=== PATIENT | male | born 1970 | race Caucasian/White ===

== ENCOUNTER → 2020-04-06 12:10 | Outpatient (CLI) | payer BC, SELFPAY ==
--- NOTE | ~2020-04-06 | XR_ITS ---
XR fl inj shoulder RT - MR/CT DATE: 04/06/2020 13:18 INDICATION: Right shoulder pain; fluoroscopically guided right glenohumeral joint contrast material i njection for MRI shoulder evaluation TECHNIQUE: The purpose of the procedure, technique and potential complications were discussed with th e patient. The patient verbalized understanding and gave consent. Timeout procedure confirmed proper patient, procedure and sidedness. The skin of the anterior aspect of the right shoulder was prepared with sterile Betadine solution. St erile drape was applied. 1% lidocaine local anesthetic was a metastatic to the skin and underlying so ft tissues at the anterior aspect of the right shoulder. A 20-gauge spinal needle was introduced unde r fluoroscopic guidance into the glenohumeral joint space from an anterior approach. Subsequently, 12 cc dilute Omnipaque radiopaque and multi-Con MR contrast material was injected und er fluoroscopic visualization, revealing the contrast material to be intra-articular. A single spot r adiograph exposure was obtained for documentation. The patient was very cooperative and tolerated the procedure without complaint. IMPRESSION: Successful fluoroscopically guided percutaneous injection of contrast material into the r ight glenohumeral joint space for right MR shoulder examination Reviewed, dictated and finalized at [facility]. Reviewed, dictated and finalized at [facility]. IMPRESSION: Successful fluoroscopically guided percutaneous injection of contra st material into the right glenohumeral joint space for right MR shoulder exami nation
--- NOTE | ~2020-04-06 | MR_ITS ---
EXAMINATION: MR shoulder RT w con DATE: 04/06/2020 14:23 INDICATION: Right shoulder pain TECHNIQUE: Magnetic resonance imaging (MRI) of the right shoulder was performed following intra-sukhjinder cular gadolinium contrast injection and without intravenous contrast. Details of the glenohumeral peter nt injection have been dictated separately. Sequences included axial T2-weighted FS FSE, axial T1-we ighted FS FSE, coronal oblique T1-weighted FS FSE, coronal oblique T2-weighted FSE, sagittal T2-weigh roberto FS FSE, sagittal T1-weighted FSE, and ABER (abduction external rotation) T1-weighted FS FSE. COMPARISON: 03/07/2019 FINDINGS: Coracoacromial arch: The acromion undersurface is flat in morphology (type I). The acromion appears thin anteriorly with f oci of susceptibility artifact along the expected course of the coracoacromial ligament consistent wi th prior acromioplasty and resection/debridement of the ligament. Mild acromioclavicular osteoarthrit is. Rotator cuff: Again seen are suture anchors along the greater tuberosity foot plate and lateral margin of the great er tuberosity likely related to prior rotator cuff repair. Moderate supraspinatus tendinopathy. There is an expected small amount of contrast imbibition within the distal supraspinatus tendon at the sit e of repair. No extra-articular contrast extravasation to suggest full-thickness rotator cuff tear. T here is also no discrete measurable contrast filled tear defect or torn and retracted tendon tear mar gin to suggest a significant residual/recurrent tear. Mild subscapularis tendinopathy without discret e tear. Normal rotator cuff muscle bulk and signal. Biceps tendon, glenoid labrum and glenohumeral cartilage: Interval progression of the prior SLAP tear at the superior glenoid labrum with new avulsion of the i ntra-articular long head biceps tendon from its glenolabral anchor. The proximally attenuated long he ad biceps tendon tear margin is retracted distally to the level of the intertubercular groove. There is residual irregular contour with mild increased signal along the anteroinferior glenoid which appea rs less prominent than on the prior study there was a more well-defined contrast-filled tear suggesti ng either interval debridement or progressive degeneration. Partial-thickness chondral ulceration wit hout degenerative subchondral changes anteriorly at the apex of the humeral head. Chondral surface ir regularity along the anteroinferior glenoid. Small marginal osteophytes along the inferior humeral he ad. Bones and other: Normal marrow signal with no edema, fracture or abnormal marrow replacing process. Mild cystic change at the greater tuberosity. Small amount of fluid in the subacromial/subdeltoid bursa consistent wit h minimal bursitis. IMPRESSION: 1. Postoperative change of prior acromioplasty and rotator cuff repair which appears to involve the s upraspinatus, infraspinatus and teres minor tendons. No significant residual/recurrent tear appreciat ed. 2. Interval progression of a SLAP tear at the superior glenoid labrum with new avulsion of the long h ead biceps tendon. 3. Progressive degeneration versus interval debridement of an additional labral tear at the anteroinf erior glenoid. 4. Mild glenohumeral and acromioclavicular osteoarthritis. 5. Minimal subacromial/subdeltoid bursitis. Reviewed, dictated and finalized at [facility]. IMPRESSION: 1. Postoperative change of prior acromioplasty and rotator cuff repair which ap pears to involve the supraspinatus, infraspinatus and teres minor tendons. No s ignificant residual/recurrent tear appreciated. 2. Interval progression of a SLAP tear at the superior glenoid labrum with new avulsion of the long head biceps tendon. 3. Progressive degenerati
== END ==
PROVIDERS: Visit Provider Specialist
DX: M19.011 Primary osteoarthritis, right shoulder (principal)
CPT/HCPCS: 23350; 73222; 77002; A9577; Q9966

== ENCOUNTER → 2020-04-08 12:11 | Outpatient (CLI) | payer BC, SELFPAY ==
--- NOTE | ~2020-04-08 | XR_ITS ---
EXAMINATION: XR fl inj knee RT for MR/CT DATE: 04/08/2020 13:12 INDICATION: Acute onset right knee pain. TECHNIQUE: A time-out was performed to verify the patient's name, date of , and procedure to b e performed. The procedure including the risks, benefits, and alternatives was discussed with the pat ient. Risks discussed included bleeding, infection and allergic reaction. The patient understood the risks and agreed to proceed. The skin overlying the lateral aspect of the right knee joint was prepp ed and draped in usual sterile fashion. Anesthetic was administered with 1% lidocaine subcutaneously . A 22 G needle was advanced under fluoroscopic guidance into the patellofemoral compartment of the right knee joint. Injection of 1 mL of Omnipaque 240 confirmed intra-articular position of the needl e. Subsequently, injectate consisting of 40 mL of 7:3:2 mixture of sterile saline:Omnipaque 240:1% l idocaine mixed 200:1 with 529 mg/mL Multihance gadolinium contrast was injected with intermittent flu oroscopy confirming intra-articular administration. The needle was removed and the entry site was ashia aned and dressed. There were no immediate complications. Fluoroscopy exposure time was 0.1 minutes. The total number of images was 9. FINDINGS: Real-time fluoroscopy demonstrates the needle in the right knee joint. IMPRESSION: 1. Right knee joint injection of a dilute gadolinium contrast mixture for subsequent MRI arthrogram w hich will be dictated separately. Reviewed, dictated and finalized at [facility]. IMPRESSION: 1. Right knee joint injection of a dilute gadolinium contrast mixture for subse quent MRI arthrogram which will be dictated separately.
--- NOTE | ~2020-04-08 | MR_ITS ---
EXAMINATION: MR knee RT w con DATE: 04/08/2020 13:48 INDICATION: Acute onset right knee pain with multiple prior surgeries TECHNIQUE: Magnetic resonance arthrogram of the right knee was performed without intravenous contrast but following intra-articular administration of a dilute gadolinium contrast mixture. Details of the joint injection have been dictated separately. Sequences included sagittal PD-weighted FSE, axial, s agittal and coronal PD-weighted FS FSE, sagittal and coronal T1-weighted FS FSE. COMPARISON: None. FINDINGS: Medial compartment: Minimal residual meniscal tissue at the medial meniscal body and posterior horn likely reflecting day nges of prior subtotal meniscectomy. Chondral ulceration along the medial margin of the medial tibial plateau. Extensive chondral ulceration along the weightbearing medial femoral condyle most prominent along the lateral aspect of the central weightbearing medial femoral condyle where a flat central candelario bchondral osteophyte has developed. Lateral compartment: There is lateral extrusion of the lateral meniscal body. There is mildly increased contrast signal ex tending along a longitudinal horizontal tear plane extending to the inferior articular surface of the body and posterior horn of the lateral meniscus. Deep chondral ulceration along the lateral and post erior margins of the medial tibial plateau. Underlying mild subarticular edema at the posterior aspec t of the lateral tibial plateau. Additional deep chondral ulceration with mild cortical irregularity at the central aspect of the weightbearing lateral femoral condyle. A severe partial thickness cartil age loss and chondral surface irregularity along portions of the remaining tibial plateau and lateral femoral condyle. Patellofemoral compartment: Articular cartilage is normal. Ligaments and tendons: Postoperative change of prior anterior cruciate ligament repair with recurrent likely complete tear o f the graft occurring distally near the entrance to the tibial tunnel. The posterior cruciate ligamen t is normal but demonstrates increased angulation resulting from slight anterior subluxation of the t ibia relative to the femur resulting from the anterior cruciate ligament tear. The medial collateral ligament and fibular collateral ligament complex are normal. There is a sagittally oriented defect of the otherwise intact patellar tendon at the site of a prior patellar tendon autograft harvest. Quadr iceps tendon is normal. The visualized medial and lateral hamstring tendons as well as the iliotibial band are normal. Fluid: Moderate-sized knee joint effusion. There is a small Clements's cyst. There is an additional deeper gang lion cyst arising at the posterior medial aspect of the knee which extends caudally along the deep ma rgin of the pes anserinus. No loose osteochondral bodies identified. Osseous/other: Of the previous noted minimal subarticular edema there is normal marrow signal. No fracture or pathol ogic marrow replacing process. IMPRESSION: 1. Anterior cruciate ligament reconstruction with complete tear of a likely patellar tendon autograft . 2. Diminutive body and posterior horn of the medial meniscus likely reflecting changes of prior subto alivia meniscectomy. 3. Longitudinal horizontal tear of the body and posterior horn of the lateral meniscus. 4. Mild osteoarthritis with scattered high-grade chondromalacia in the medial and lateral compartment s. 5. Likely reactive moderate sized knee joint effusion and small Clements's cyst. Reviewed, dictated and finalized at [facility]. IMPRESSION: 1. Anterior cruciate ligament reconstruction with complete tear of a likely pat ellar tendon autograft. 2. Diminutive body and posterior horn of the med
== END ==
PROVIDERS: Visit Provider Specialist
DX: S83.281A Other tear of lateral meniscus, current injury, right knee, initial encounter (principal); X58.XXXA Exposure to other specified factors, initial encounter; M17.11 Unilateral primary osteoarthritis, right knee
CPT/HCPCS: 20610; 73722; 77002; A9577; Q9966